=== PATIENT | female | born 1955 ===

== ENCOUNTER → 2025-01-28 07:10 | Outpatient (CLI) | payer OTHER ==
[2025-01-28 08:07] LABS: BASO % 0.8 % (0.1-1.2); EOS % 2.5 % (0.7-7.0); HEMATOCRIT 36.2 % (34.1-44.9); HEMOGLOBIN 12.4 g/dL (11.2-15.7); LYMPH # 1.15 (1.18-3.74); MEAN CORPUSCULAR HEMOGLOBIN 31.6 pg (25.6-32.2); MONO % 7.6 % (4.7-12.5); NEUT # 2.38 (1.56-6.13); NEUT % 59.8 % (34.0-71.1); PLATELET COUNT 300 K/uL (163-369); RED BLOOD COUNT 3.92 M/uL (3.93-5.22); RED CELL DISTRIBUTION WIDTH 13.9 % (11.6-14.4)
[2025-01-28 09:13] LABS: % SATURACION 26.4 % (15-50); ALBUMIN 3.7 gm/dL (3.4-5.0); BILIRUBIN TOTAL 0.6 mg/dL (0.3-1.2); CALCIUM 9.4 mg/dL (8.5-10.1); CREATININE SERUM 0.66 mg/dL (0.55-1.02); FERRITIN 85.3 NG/ML (8-252); GFR 88.54; GLOBULINA 3.1 G/DL (2.4-3.5); POTASSIUM 4.52 mEq/L (3.5-5.1); TOTAL PROTEIN 6.8 gm/dL (6.4-8.2); TSH 1.58 uIU/mL (0.358-3.74)
[2025-01-29 07:11] LABS: hav igm Negative (Negative); hcv Non Reactive (Non Reactive); hep b c Negative (Negative); hep b s ag Negative (Negative)
[2025-01-29 09:08] LABS: CA 125 10.6 U/mL (0.0-38.1)
== END | disposition home or self-care (01) ==
LOC: LAB 07:10
PROVIDERS: ATTEND Internal Medicine Hematology & Oncology
DX: D72.818 Other decreased white blood cell count (principal); D51.3 Other dietary vitamin B12 deficiency anemia; I10 Essential (primary) hypertension; J45.998 Other asthma; E78.2 Mixed hyperlipidemia; D50.8 Other iron deficiency anemias; R79.9 Abnormal finding of blood chemistry, unspecified; R74.02 Elevation of levels of lactic acid dehydrogenase [LDH]; K76.89 Other specified diseases of liver; D51.1 Vitamin B12 deficiency anemia due to selective vitamin B12 malabsorption with proteinuria; E03.8 Other specified hypothyroidism; E06.3 Autoimmune thyroiditis; C56.9 Malignant neoplasm of unspecified ovary; R97.0 Elevated carcinoembryonic antigen [CEA]; B20 Human immunodeficiency virus [HIV] disease

== ENCOUNTER 2025-05-16 07:36 | Outpatient (CLI) | payer OTHER ==
[2025-05-16 08:29] LABS: BASO % 0.5 % (0.1-1.2); EOS # 0.11 (0.04-0.54); EOS % 1.9 % (0.7-7.0); LYMPH # 1.41 (1.18-3.74); LYMPH % 24.8 % (19.3-53.1); MEAN PLATELET VOLUME 9.40 fl (9.4-12.4); MONO # 0.43 (0.24-0.82); MONO % 7.6 % (4.7-12.5); NEUT # 3.69 (1.56-6.13); NEUT % 64.8 % (34.0-71.1); RED CELL DISTRIBUTION WIDTH 13.2 % (11.6-14.4)
[2025-05-16 09:21] LABS: % SATURACION 29.1 % (15-50); ALT/SGPT 22.0 U/L (12-78); AST/SGOT 12.0 U/L (15-37); BILIRUBIN TOTAL 0.48 mg/dL (0.3-1.2); BUN CREA RATIO 35.0 (7.0-25.0); CREATININE SERUM 0.54 mg/dL (0.55-1.02); FE 95.0 ug/dl (50-170); GFR 111.61; GLOBULINA 2.6 G/DL (2.4-3.5); GLUCOSE FASTING 83.0 mg/dL (65-100); LDH 143.0 U/L (84-246); OSMOLALITY SERUM 286.0 MOSM/KG (275-295)
[2025-05-16 11:01] LABS: FOLIC ACID > 20.00 ng/ml (4.78-20); VITAMIN D3 25 HYDROXY 41.28 ng/ml (30-120)
== END 2025-05-16 07:40 | disposition home or self-care (01) ==
LOC: LAB 07:36
PROVIDERS: ATTEND Internal Medicine Hematology & Oncology
DX: D72.818 Other decreased white blood cell count (principal); D51.3 Other dietary vitamin B12 deficiency anemia; D53.0 Protein deficiency anemia; I10 Essential (primary) hypertension; J45.998 Other asthma; E78.2 Mixed hyperlipidemia; D50.8 Other iron deficiency anemias; R74.02 Elevation of levels of lactic acid dehydrogenase [LDH]; K76.89 Other specified diseases of liver; R79.9 Abnormal finding of blood chemistry, unspecified; E55.9 Vitamin D deficiency, unspecified